=== PATIENT | male | born 1975 | race Caucasian/White ===

== ENCOUNTER 2020-01-06 14:30 | Emergency (ER) | payer BC ==
--- NOTE | 2020-01-06 15:10 | ED ---
General Adult HPI - General Chief complaint: Fever Stated complaint: SOB, COVID + Time Seen by Provider: 01/06/20 14:48 Source: patient, RN notes reviewed Mode of arrival: ambulatory Limitations: no limitations - History of Present Illness Initial comments: 44-year-old male presents to the emergency room for a chief complaint of cough. Patient reports he has had a cough for about 2 weeks accompanied with congestion and fatigue. Patient was tested positive for covid today at his doctor's office. Patient's doctor then referred him to the emergency room for chest x- ray. Patient has not had any shortness of breath or chest pain. Fevers have resolved. Patient actually feels that his symptoms are improving.Patient has no other complaints at this time including shortness of breath, chest pain, abdominal pain, nausea or vomiting, headache, or visual changes. - Related Data Allergies Allergy/AdvReac Type Severity Reaction Status Date / Time No Known Allergies Allergy Verified 01/06/20 14:35 Review of Systems ROS Statement: Those systems with pertinent positive or pertinent negative responses have been documented in the HPI. ROS Other: All systems not noted in ROS Statement are negative. Past Medical History Past Medical History: No Reported History History of Any Multi-Drug Resistant Organisms: None Reported Past Surgical History: Orthopedic Surgery Additional Past Surgical History / Comment(s): jaw surg/ bone graft 02/24/2015 Past Psychological History: No Psychological Hx Reported Smoking Status: Never smoker Past Alcohol Use History: Occasional Past Drug Use History: None Reported General Exam Limitations: no limitations General appearance: alert, in no apparent distress Head exam: Present: atraumatic, normocephalic, normal inspection Eye exam: Present: normal appearance, PERRL, EOMI. Absent: scleral icterus, conjunctival injection, periorbital swelling ENT exam: Present: normal exam, mucous membranes moist Neck exam: Present: normal inspection, full ROM. Absent: tenderness, meningismus, lymphadenopathy Respiratory exam: Present: normal lung sounds bilaterally. Absent: respiratory distress, wheezes, rales, rhonchi, stridor Cardiovascular Exam: Present: regular rate, normal rhythm, normal heart sounds. Absent: systolic murmur, diastolic murmur, rubs, gallop, clicks GI/Abdominal exam: Present: soft, normal bowel sounds. Absent: distended, tenderness, guarding, rebound, rigid Neurological exam: Present: alert Course Vital Signs 01/06/20 01/06/20 01/06/20 14:32 16:09 16:13 Temperature 98.9 F Pulse Rate 79 60 Respiratory 18 20 18 Rate Blood Pressure 133/78 116/69 O2 Sat by Pulse 99 96 Oximetry 01/06/20 16:16 Temperature 98.4 F Pulse Rate Respiratory Rate Blood Pressure O2 Sat by Pulse Oximetry Medical Decision Making - Medical Decision Making Vitals are stable. Patient is 99% on room air. Denies shortness of breath. He is afebrile. He is well-appearing. Lungs are clear bilaterally. Chest x-ray shows no acute process. At this time patient can be discharged home to quarantine. He can follow up with his doctor. If he develops shortness of breath or other worsening symptoms he is aware to return to the emergency room. I discussed this case with attending Dr. Aguirre who agrees with this assessment and treatment plan. Disposition Clinical Impression: Cough Disposition: HOME SELF-CARE Condition: Good Instructions (If sedation given, give patient instructions): Fever in Adults (ED) Additional Instructions: Please quarantine until directed by your doctor. Please follow-up with your doctor in one to 2 days for recheck. If you have any worsening symptoms such as shortness of breath return to the emergency room. Is patient prescribed a controlled substance at d/c from ED?: No Referrals: Jatinder Hansen MD [Primary Care Provider] - 1-2 days Time of Disposition: 16:11
--- NOTE | 2020-01-06 15:45 | XR ---
EXAMINATION TYPE: XR chest 1V portable DATE OF EXAM: 01/06/2020 Comparison: None Clinical History: 44-year-old male cough, COVID+ Findings: The cardiomediastinal silhouette, aorta, and pulmonary vasculature are within normal limits. Hazy p eripheral lung densities related to overlying soft tissue and portable technique. Lungs and pleural s paces are clear. Impression: No acute cardiopulmonary process.
[2020-01-06 16:14] VITALS: RESP 18
[2020-01-06 16:38] VITALS: BP 110/69; PULSE 69; TEMP 98.2
== END 2020-01-06 16:37 | disposition home or self-care (01) ==
LOC: EC 14:30
DX: R05 Cough (principal); R50.9 Fever, unspecified; R06.02 Shortness of breath
CPT/HCPCS: 71045; 99283